=== PATIENT | male | born 1940 | race Caucasian/White ===

== ENCOUNTER 2017-11-29 12:02 | Observation (INO) | payer OTHER, MEDICARE ==
[2017-11-29] VITALS (7 sets, daily range): BP systolic 147–168; BP diastolic 70–94; PULSE 60–62; RESP 16–18; TEMP 97.8–98.8; O2SAT 97–100
--- NOTE | 2017-11-29 12:58 | RADRPT ---
EXAM DATE/TIME: 11/29/2017 12:39 [facility] COMPARISON: No previous studies available for comparison. INDICATIONS : Chest pain with congestion. MEDICAL HISTORY : Hypertension. SURGICAL HISTORY : Pacemaker. Cardiac stents. ENCOUNTER: Initial ACUITY: 3 weeks PAIN SCORE: 3/10 LOCATION: Bilateral chest FINDINGS: Frontal and lateral views of the chest demonstrate a normal-sized cardiac silhouette. The lungs are h yperinflated with prominent retrosternal airspace. Left chest wall cardiac pacing device/AICD is pres ent. No pleural effusion, airspace consolidation, or pneumothorax is visualized. There are degenerati ve changes of the thoracic spine. CONCLUSION: No acute cardiopulmonary abnormality is identified. Hamzah Bermudez MD on November 29, 2017 at 12:56 Board Certified Radiologist. This report was verified electronically.
[2017-11-29 13:01] LABS: AUTOMATED NEUTROPHIL # 4.9 TH/MM3 (1.8-7.7); BASOPHIL # 0.1 TH/MM3 (0-0.2); BASOPHIL % 1.1 % (0.0-2.0); EOSINOPHIL # 0.3 TH/MM3 (0-0.4); EOSINOPHIL % 4.2 % (0.0-4.0); HEMATOCRIT 41.9 % (39.0-51.0); HEMOGLOBIN 14.2 GM/DL (13.0-17.0); LYMPH % 23.7 % (9.0-44.0); LYMPHOCYTE # 1.9 TH/MM3 (1.0-4.8); MEAN CORPUSCULAR HEMOGLOBIN 30.9 PG (27.0-34.0); MEAN CORPUSCULAR HGB CONC 33.9 % (32.0-36.0); MEAN PLATELET VOLUME 7.7 FL (7.0-11.0); MONO % 11.3 % (0.0-8.0); MONOCYTE # 0.9 TH/MM3 (0-0.9); NEUT % 59.7 % (16.0-70.0); PLATELET COUNT 224 TH/MM3 (150-450); RED CELL DISTRIBUTION WIDTH 14.3 % (11.6-17.2); WHITE BLOOD COUNT 8.2 TH/MM3 (4.0-11.0)
[2017-11-29 13:10] LABS: INTERNATIONAL NORMALIZED RATIO 4.9 RATIO; PROTHROMBIN TIME - PATIENT 49.5 SEC (9.8-11.6)
[2017-11-29 13:18] LABS: ALBUMIN 3.8 GM/DL (3.4-5.0); AST (GOT) 23 U/L (15-37); BICARBONATE 26.2 MEQ/L (21.0-32.0); BLOOD UREA NITROGEN 22 MG/DL (7-18); CHLORIDE 105 MEQ/L (98-107); CREATININE 1.26 MG/DL (0.60-1.30); GLOMERULAR FILTRATION RATE 55 ML/MIN (>89); GLUCOSE,RANDOM 97 MG/DL (74-106); SODIUM (NA) 138 MEQ/L (136-145)
[2017-11-29 13:19] LABS: ALT (GPT) 23 U/L (12-78)
[2017-11-29 13:23] LABS: ALKALINE PHOSPHATASE 70 U/L (45-117); TOTAL BILIRUBIN ADULT 0.5 MG/DL (0.2-1.0); TOTAL PROTEIN 7.4 GM/DL (6.4-8.2); TROPONIN I LESS THAN 0.02 NG/ML (0.02-0.05)
--- NOTE | 2017-11-29 13:50 | PD ---
HPI Chief Complaint: Chest Pain Time Seen by Provider: 13:49 Travel History International Travel<30 days: No Contact w/Intl Traveler<30days: No Traveled to known affect area: No History of Present Illness HPI 77-year-old male came to the emergency room with history of chest pain that is on and off for many months but is progressively getting worse and more continuous. It is substernal. Patient had gone to [place] where he had an EGD done as well as a CT scan of his chest. They were all within normal limits. Patient does have history of coronary artery disease and had 2 stents put in 18 months ago. Patient is concerned because the nitro is not working with the pain. No aggravating or relieving factors identified. No radiation of the pain. He is here with his . Vital signs are stable. There was blood work initiated in triage. [facility] Past Medical History Narrative Medical List of his past medical, surgical, social and family history is reviewed from the nursing note Social History Tobacco Use: No Allergies-Medications (Allergen,Severity, Reaction): Coded Allergies: No Known Allergies (Unverified , 11/29/17) Comments No known drug allergies. Reported Meds & Prescriptions Reported Meds & Active Scripts Active Reported Nitroglycerin SL (Nitroglycerin) 0.4 Mg Subl 0.4 Mg SL DIRECTED PRN ONE TABLET UNDER THE TONGUE NEEDED FOR CHEST PAIN, MAY REPEAT EVERY FIVE MINUTES FOR A TOTAL OF 3 DOSES OR CALL 911 IF NO RELIEF Metoprolol Tartrate 50 Mg Tab 50 Mg PO DAILY Warfarin 5 Mg Tab 5 Mg PO DAILY Spironolactone 25 Mg Tab 25 Mg PO DAILY Pantoprazole (Pantoprazole Sodium) 40 Mg Tab 40 Mg PO DAILY Lisinopril 10 Mg Tab 10 Mg PO DAILY Narrative Medication List of his home medications reviewed from the nursing Review of Systems Except as stated in HPI: all other systems reviewed are Neg Cardiovascular: Positive: Chest Pain or Discomfort Physical Exam Narrative GENERAL: Awake, alert, no obvious distress, anxious SKIN: Focused skin assessment warm/dry. HEAD: Atraumatic. Normocephalic. EYES: Pupils equal and round. No scleral icterus. No injection or drainage. ENT: No nasal bleeding or discharge. Mucous membranes pink and moist. NECK: Trachea midline. No JVD. CARDIOVASCULAR: Regular rate and rhythm. No murmur appreciated. RESPIRATORY: No accessory muscle use. Clear to auscultation. Breath sounds equal bilaterally. GASTROINTESTINAL: Abdomen soft, non-tender, nondistended. Hepatic and splenic margins not palpable. MUSCULOSKELETAL: No obvious deformities. No clubbing. No cyanosis. No edema. NEUROLOGICAL: Awake and alert. No obvious cranial nerve deficits. Motor grossly within normal limits. Normal speech. PSYCHIATRIC: Appropriate mood and affect; insight and judgment normal. Data Data Last Documented VS Vital Signs Date Time Temp Pulse Resp B/P (MAP) Pulse Ox O2 Delivery O2 Flow Rate FiO2 11/29/17 13:50 97.8 61 16 164/71 (102) 99 11/29/17 13:50 Room Air Orders Orders Electrocardiogram (11/29/17 12:16) Ckmb (Isoenzyme) Profile (11/29/17 12:16) Complete Blood Count With Diff (11/29/17 12:16) Comprehensive Metabolic Panel (11/29/17 12:16) Magnesium (Mg) (11/29/17 12:16) Prothrombin Time / Inr (Pt) (11/29/17 12:16) Act Partial Throm Time (Ptt) (11/29/17 12:16) Troponin I (11/29/17 12:16) Lipase (11/29/17 12:16) Chest, Pa & Lat (11/29/17 12:16) Admit Order (Ed Use Only) (11/29/17 14:17) Labs Laboratory Tests Test 11/29/17 12:42 White Blood Count 8.2 TH/MM3 Red Blood Count 4.60 MIL/MM3 Hemoglobin 14.2 GM/DL Hematocrit 41.9 % Mean Corpuscular Volume 91.0 FL Mean Corpuscular Hemoglobin 30.9 PG Mean Corpuscular Hemoglobin Concent 33.9 % Red Cell Distribution Width 14.3 % Platelet Count 224 TH/MM3 Mean Platelet Volume 7.7 FL Neutrophils (%) (Auto) 59.7 % Lymphocytes (%) (Auto) 23.7 % Monocytes (%) (Auto) 11.3 % Eosinophils (%) (Auto) 4.2 % Basophils (%) (Auto) 1.1 % Neutrophils # (Auto) 4.9 TH/MM3 Lymphocytes # (Auto) 1.9 TH/MM3 Monocytes # (Auto) 0.9 TH/MM3 Eosinophils # (Auto) 0.3 TH/MM3 Basophils # (Auto) 0.1 TH/MM3 CBC Comment DIFF FINAL Differential Comment Prothrombin Time 49.5 SEC Prothromb Time International Ratio 4.9 RATIO Activated Partial Thromboplast Time 43.4 SEC Blood Urea Nitrogen 22 MG/DL Creatinine 1.26 MG/DL Random Glucose 97 MG/DL Total Protein 7.4 GM/DL Albumin 3.8 GM/DL Calcium Level 9.0 MG/DL Magnesium Level 2.0 MG/DL Alkaline Phosphatase 70 U/L Aspartate Amino Transf (AST/SGOT) 23 U/L Alanine Aminotransferase (ALT/SGPT) 23 U/L Total Bilirubin 0.5 MG/DL Sodium Level 138 MEQ/L Potassium Level 4.4 MEQ/L Chloride Level 105 MEQ/L Carbon Dioxide Level 26.2 MEQ/L Anion Gap 7 MEQ/L Estimat Glomerular Filtration Rate 55 ML/MIN Total Creatine Kinase 92 U/L Troponin I LESS THAN 0.02 NG/ML Lipase 278 U/L MDM Medical Decision Making Medical Screen Exam Complete: Yes Emergency Medical Condition: Yes Medical Record Reviewed: Yes Differential Diagnosis ACS, non-STEMI, nonspecific chest Narrative Course 2:20 PM blood test results are back and within acceptable limit. Patient will be admitted to the chest pain center to be ruled out. Procedures EKG Prior to Arrival: No Diagnosis Primary Impression: Chest pain Qualified Codes: R07.9 - Chest pain, unspecified Admitting Information Admitting Physician Requests: Observation Sterling Landis MD Nov 29, 2017 13:49
[2017-11-29] MEDS ORDERED: EZET1TAB8 PO (13:54)
[2017-11-29] MEDS ORDERED: LISI10TA3 PO (13:57)
[2017-11-29] MEDS ORDERED: PANT40TA3 PO (13:59)
[2017-11-29] MEDS ORDERED: SPIR25TA PO (14:02)
[2017-11-29] MEDS ORDERED: WARF-23 PO (14:03)
[2017-11-29] MEDS ORDERED: METO50TA PO (14:08)
[2017-11-29] MEDS ORDERED: NITR1SUB3 SL (14:10)
[2017-11-29] MEDS ORDERED: NITROGLYCERIN 0.4 MG SL 25 TABS/BTL SL PRN (15:00)
[2017-11-29] MEDS ORDERED: ONDANSETRON HCL 4 MG/2 ML VIAL IV PUSH PRN (15:00)
[2017-11-29] MEDS ORDERED: ACETAMINOPHEN 500 MG CPLT PO PRN (15:00)
[2017-11-29] MEDS ORDERED: SODIUM CHLORIDE 0.9% FLUSH 10 ML FLUSH IV FLUSH PRN (15:00)
--- NOTE | 2017-11-29 15:17 | HHI.HP ---
HPI Primary Care Physician [facility] Chief Complaint Chest pain History of Present Illness 77-year-old male with history of coronary artery disease presents to emergency room for further evaluation chest pain, pointing to the epigastric area. Onset "years" worsening over last couple of months. Endorses endoscopy 2 months ago due to presenting symptoms. Today while filling his bird feeders developed moderate discomfort, rated 5/10, without radiation. Duration minutes. No reciprocating or relieving factors. No associated symptoms of nausea, vomiting , dyspnea, or diaphoresis. Endorses several episodes increasing over last month. No current discomfort. Review of Systems General: No fatigue,weakness, fever, chills, recent illness, or change in appetite. Has been in his general state of health. HEENT: No MAHAN, no vision changes, no nasal congestion or drainage, no dysphasia CV: As stated above. No current chest pain, pressure, palpitations, or dizziness. RESP: No SOB, cough, wheeze, or asthma GI: No nausea, vomiting, bowel changes, diarrhea, constipation, pain, distention , melena, or blood in the stool. : No dysuria, urgency, frequency EXT: No lower leg edema, no paraesthesias MS: No discomfort, injury, or change in ROM NEURO: No change in memory, difficulty with balance, LOC, motor/sensory deficits PSYCH: No anxiety, depression, suicidal ideation SKIN: No rashes, no concerning lesions Past Family Social History Allergies: Coded Allergies: No Known Allergies (Unverified , 11/29/17) Past Medical History CAD, FL, decreased EF, GERD Past Surgical History None Reported Medications Reported Meds & Active Scripts Active Reported Nitroglycerin SL (Nitroglycerin) 0.4 Mg Subl 0.4 Mg SL DIRECTED PRN ONE TABLET UNDER THE TONGUE NEEDED FOR CHEST PAIN, MAY REPEAT EVERY FIVE MINUTES FOR A TOTAL OF 3 DOSES OR CALL 911 IF NO RELIEF Metoprolol Tartrate 50 Mg Tab 50 Mg PO DAILY Warfarin 5 Mg Tab 5 Mg PO DAILY Spironolactone 25 Mg Tab 25 Mg PO DAILY Pantoprazole (Pantoprazole Sodium) 40 Mg Tab 40 Mg PO DAILY Lisinopril 10 Mg Tab 10 Mg PO DAILY Active Ordered Medications Current Medications Medications (Trade) Dose Ordered Sig/Rachid Route Start Time Stop Time Status Last Admin (NS Flush) 2 ml UNSCH PRN IV FLUSH 11/29/17 15:00 (NS Flush) 2 ml BID IV FLUSH 11/29/17 21:00 (Tylenol) 500 mg Q4H PRN PO 11/29/17 15:00 (Zofran Inj) 4 mg Q6H PRN IV PUSH 11/29/17 15:00 (Nitrostat Sl) 0.4 mg Q5M PRN SL 11/29/17 15:00 (Aspirin) 325 mg DAILY PO 11/30/17 09:00 Social History Known CAD and hyperlipidemia. States he is unable to tolerate statin therapy. No known diabetes or hypertension. Quit smoking age 38. Past cardiac testing July 2016 cardiac catheterization-[facility]-reports 3 cardiac stents , stents card reviewed cardiac stents x3 RCA, 1 LAD. Defib/pacer placed during this time. STEMI 2001-[facility] Physical Exam Vital Signs Vital Signs Date Time Temp Pulse Resp B/P (MAP) Pulse Ox O2 Delivery O2 Flow Rate FiO2 11/29/17 15:14 97.8 61 17 168/82 (110) 98 11/29/17 15:13 100 21 11/29/17 13:50 97.8 61 16 164/71 (102) 99 11/29/17 13:50 67 17 100 Room Air 11/29/17 12:13 98.8 62 18 158/94 (115) 99 Physical Exam GENERAL: Alert WN, WD, NAD, pleasant, elderly male HEAD: NC, AT CV: RRR, without murmur, rub, gallop, no JVD, S1-S2 no S3-S4. Chest wall nontender with palpation. RESP: Clear lungs throughout bilateral, no crackles, wheeze, rhonchi, symmetrical chest rise, nonlabored, able to speak in full sentences ABD: Soft, NT, ND, no masses, positive bowel tones EXT: Pulses +2x4, no dependent edema MS: Normal tone x4 extremities, nontender, no obvious deformities, full range of motion NEURO: CN II through CN XII grossly intact, motor strength 5/5 PSYCH: A+O -3, pleasant affect, appropriate speech, mood, insight and judgment SKIN: Normal turgor, normal texture, no lesions, no rashes, brisk cap refill, even hair distribution Laboratory Laboratory Tests Test 11/29/17 12:42 White Blood Count 8.2 Red Blood Count 4.60 Hemoglobin 14.2 Hematocrit 41.9 Mean Corpuscular Volume 91.0 Mean Corpuscular Hemoglobin 30.9 Mean Corpuscular Hemoglobin Concent 33.9 Red Cell Distribution Width 14.3 Platelet Count 224 Mean Platelet Volume 7.7 Neutrophils (%) (Auto) 59.7 Lymphocytes (%) (Auto) 23.7 Monocytes (%) (Auto) 11.3 Eosinophils (%) (Auto) 4.2 Basophils (%) (Auto) 1.1 Neutrophils # (Auto) 4.9 Lymphocytes # (Auto) 1.9 Monocytes # (Auto) 0.9 Eosinophils # (Auto) 0.3 Basophils # (Auto) 0.1 CBC Comment DIFF FINAL Differential Comment Prothrombin Time 49.5 Prothromb Time International Ratio 4.9 Activated Partial Thromboplast Time 43.4 Blood Urea Nitrogen 22 Creatinine 1.26 Random Glucose 97 Total Protein 7.4 Albumin 3.8 Calcium Level 9.0 Magnesium Level 2.0 Alkaline Phosphatase 70 Aspartate Amino Transf (AST/SGOT) 23 Alanine Aminotransferase (ALT/SGPT) 23 Total Bilirubin 0.5 Sodium Level 138 Potassium Level 4.4 Chloride Level 105 Carbon Dioxide Level 26.2 Anion Gap 7 Estimat Glomerular Filtration Rate 55 Total Creatine Kinase 92 Troponin I LESS THAN 0.02 Lipase 278 Result Diagram: 11/29/17 1242 11/29/17 1242 Imaging Last 48 hours Impressions Chest X-Ray 11/29/17 1216 Signed Impressions: Service Date/Time: Wednesday, November 29, 2017 12:39 - CONCLUSION: No acute cardiopulmonary abnormality is identified. Hamzah Bermudez MD Course EKG Atrial paced with PVC, no st changes, U wave anterior/lateral Caprini VTE Risk Assessment Caprini VTE Risk Assessment: Mod/High Risk (score >= 2) Caprini Risk Assessment Model Point Value = 1 Point Value = 2 Point Value = 3 Point Value = 5 Age 41-60 Minor surgery BMI > 25 kg/m2 Swollen legs Varicose veins or History of unexplained or recurrent spontaneous Oral contraceptives or hormone replacement Sepsis (< 1 month) Serious lung disease, including pneumonia (< 1 month) Abnormal pulmonary function Acute myocardial infarction Congestive heart failure (< 1 month) History of inflammatory bowel disease Medical patient at bed rest Age 61-74 Arthroscopic surgery Major open surgery (> 45 min) Laparoscopic surgery (> 45 min) Malignancy Confined to bed (> 72 hours) Immobilizing plaster cast Central venous access Age >= 75 History of VTE Family history of VTE Factor V Leiden Prothrombin [id number] Lupus anticoagulant Anticardiolipin antibodies Elevated serum homocysteine Heparin-induced thrombocytopenia Other congenital or acquired thrombophilia Stroke (< 1 month) Elective arthroplasty Hip, pelvis, or leg fracture Acute spinal cord injury (< 1 month) Prophylaxis Regimen Total Risk Factor Score Risk Level Prophylaxis Regimen 0-1 Low Early ambulation 2 Moderate Order ONE of the following: *Sequential Compression Device (SCD) *Heparin 5000 units SQ BID 3-4 Higher Order ONE of the following medications: *Heparin 5000 units SQ TID *Enoxaparin/Lovenox 40 mg SQ daily (WT < 150 kg, CrCl > 30 mL/min) *Enoxaparin/Lovenox 30 mg SQ daily (WT < 150 kg, CrCl > 10-29 mL/min) *Enoxaparin/Lovenox 30 mg SQ BID (WT < 150 kg, CrCl > 30 mL/min) AND/OR *Sequential Compression Device (SCD) 5 or more Highest Order ONE of the following medications: *Heparin 5000 units SQ TID (Preferred with Epidurals) *Enoxaparin/Lovenox 40 mg SQ daily (WT < 150 kg, CrCl > 30 mL/min) *Enoxaparin/Lovenox 30 mg SQ daily (WT < 150 kg, CrCl > 10-29 mL/min) *Enoxaparin/Lovenox 30 mg SQ BID (WT < 150 kg, CrCl > 30 mL/min) AND *Sequential Compression Device (SCD) Assessment and Plan Assessment and Plan #1 Chest pain-admitted to chest pain center. Rule out with 3 sets of EKGs, cardiac enzymes, and monitor overnight. Seen and evaluated by Dr. Rashaad Rivers. Proceed with Lexiscan in morning, if ACS ruled out. If unremarkable, plans to discharge home with follow up with PCP and his patrol community service officer. Patient agreeable to plan of care and verbalizes understanding. #2 History of CAD-continue metoprolol, spironolactone, and lisinopril. #3 History of atrial fibrillation-hold warfarin, INR 4.9, repeat in a.m. Jesusita Francisco Nov 29, 2017 15:17
[2017-11-29 16:31] LABS: TROPONIN I LESS THAN 0.02 NG/ML (0.02-0.05)
[2017-11-29] MEDS ORDERED: ALUMINUM/MAGNESIUM/SIMETH 30 ML CUP PO ONE ×2 (18:15→23:45)
[2017-11-29] MEDS ORDERED: LIDOCAINE VISCOUS 2% SOLN 15 ML UDC SWISH-SWAL ONE (18:15)
[2017-11-29 19:43] LABS: TROPONIN I LESS THAN 0.02 NG/ML (0.02-0.05)
[2017-11-29] MEDS: SODIUM CHLORIDE 0.9% FLUSH 10 ML FLUSH IV FLUSH SCH (19:43)
[2017-11-29] MEDS ORDERED: TEMAZEPAM 15 MG CAP PO PRN (23:45)
[2017-11-29] MEDS ORDERED: ATROPINE/SCOPOLAM/HYOSCYAM/PB ELIXIR 10 ML CUP PO ONE (23:45)
[2017-11-29] MEDS ORDERED: LIDOCAINE VISCOUS 2% SOLN 15 ML UDC PO ONE (23:45)
[2017-11-30] VITALS (8 sets, daily range): BP systolic 118–150; BP diastolic 69–84; PULSE 59–62; RESP 16–18; TEMP 97.9–98.9; O2SAT 97–99
[2017-11-30 07:11] LABS: INTERNATIONAL NORMALIZED RATIO 3.8 RATIO
[2017-11-30] MEDS: SODIUM CHLORIDE 0.9% FLUSH 10 ML FLUSH IV FLUSH SCH (08:20)
[2017-11-30] MEDS ORDERED: SPIRONOLACTONE 25 MG TAB PO SCH (09:00)
[2017-11-30] MEDS ORDERED: PANTOPRAZOLE SOD 40 MG DELAYED RELEASE TAB PO SCH (09:00)
[2017-11-30] MEDS ORDERED: METOPROLOL TARTRATE 50 MG TAB PO SCH (09:00)
[2017-11-30] MEDS ORDERED: LISINOPRIL 10 MG TAB PO SCH (09:00)
[2017-11-30] MEDS ORDERED: ASPIRIN 325 MG TAB PO SCH (09:00)
[2017-11-30] MEDS ORDERED: REGADENOSON INJ 0.4 MG/5 ML SYR ONE (10:11)
[2017-11-30] MEDS ORDERED: AMINOPHYLLINE INJ 500 MG/20 ML VIAL ONE (11:12)
--- NOTE | 2017-11-30 13:34 | RADRPT ---
EXAM DATE/TIME: 11/30/2017 10:25 [facility] COMPARISON: No previous studies available for comparison. INDICATIONS : Chest pain. Angina. DOSE: 27 mCi Tc99m Myoview at stress. 8.2 mCi Tc99m Myoview at rest. 0.4 mg Lexiscan STRESS SYMPTOMS: None noted. MEDICATIONS: 1.) 100 mg Aminophylline IV EJECTION FRACTION: 20% MEDICAL HISTORY : Angina. SURGICAL HISTORY : None. ENCOUNTER: Initial ACUITY: 2 months PAIN SCALE: 5/10 LOCATION: Bilateral chest TECHNIQUE: The patient underwent pharmacologic stress with infusion of prescribed dose. Continuous ECG tracing was monitored during stress. Gated SPECT imaging was performed after stress and conventional SPECT i maging was performed at rest. The examination was performed on a SPECT/CT scanner, both attenuation and non-corrected datasets were reviewed. FINDINGS: DISTRIBUTION: The maximum perfused segment at stress is in the inferior wall. PERFUSION STUDY: Large fixed defect in the apical anterior and septal tuttle. The pattern of perfusion at stress is wit hin normal limits. GATED STUDY: There is global hypokinesia asymmetrically prominent in the apex and septal tuttle with EF of 20%. CONCLUSION: 1. Large apical anteroseptal wall infarct. 2. No definite stress-induced ischemia. 3. Global hypokinesia, more pronounced in the apex anteroseptal tuttle, with reduced EF of 20%. RISK CATEGORY: High (>3% Annual Mortality Rate) Geoff Mathews MD on November 30, 2017 at 13:28 Board Certified Radiologist. This report was verified electronically.
--- NOTE | 2017-11-30 14:20 | HHI.DCPOC ---
Discharge Care Plan Diagnosis: (1) Chest pain (2) CAD (coronary artery disease) (3) Hypertension (4) Paroxysmal A-fib (5) H/O heart artery stent Goals to Promote Your Health HOLD COUMADIN TODAY AND HAVE INR RECHECKED AT THE [place] TOMORROW FOR FURTHER INSTRUCTIONS. * To prevent worsening of your condition and complications * To maintain your health at the optimal level Directions to Meet Your Goals Take your medications as prescribed Follow your dietary instruction Follow activity as directed Keep your appointments as scheduled Take your immunizations and boosters as scheduled If your symptoms worsen call your PCP, if no PCP go to Urgent Care Center or Emergency Room Smoking is Dangerous to Your Health. Avoid second hand smoke Call the 24-hour hour crisis hotline for domestic abuse at [place] Estrada Nov 30, 2017 14:20
--- NOTE | 2017-11-30 17:37 | TR ---
Date Performed: 11/30/2017 Time Performed: 10:56:11 DOCTOR: Jacqueline Marshall DRUG LIST: CLINICAL HISTORY: REASON FOR TEST: CHEST PAIN REASON FOR ENDING: OBSERVATION: CONCLUSION: COMMENTS: Lexiscan stress test was performed under standard four minute protocol. Radionuclide was injected one minute prior to ending the test. No electrocardiographic abormalities were present t o suggest ischemia. Nuclear imaging and interpretation are pending.
--- NOTE | 2017-11-30 17:43 | EKG ---
Date Performed: 11/29/2017 Time Performed: 16:13:59 PTAGE: 77 years EKG: ELECTRONIC ATRIAL PACEMAKER Since PREVIOUS TRACING , no significant change noted PREVIOUS TRACIN11/29/2017 12.46 DOCTOR: Jacqueline Marshall Interpretating Date/Time 11/30/2017 17:42:07
--- NOTE | 2017-11-30 17:44 | EKG ---
Date Performed: 11/29/2017 Time Performed: 18:44:31 PTAGE: 77 years EKG: ELECTRONIC ATRIAL PACEMAKER Since PREVIOUS TRACING , no significant change noted PREVIOUS TRACIN11/29/2017 16.13 DOCTOR: Jacqueline Marshall Interpretating Date/Time 11/30/2017 17:43:12
--- NOTE | 2017-11-30 17:51 | EKG ---
Date Performed: 11/29/2017 Time Performed: 12:46:19 PTAGE: 77 years EKG: ELECTRONIC ATRIAL PACEMAKER MARKED LEFT AXIS DEVIATION ANTEROSEPTAL MYOCARDIAL INFARCTION A BNORMAL ECG NO PREVIOUS TRACING DOCTOR: Jacqueline Marshall Interpretating Date/Time 11/30/2017 17:49:11
== END 2017-11-30 16:19 | disposition home or self-care (01) ==
LOC: NEPE 12:02 → NEDA 14:19 → NEPFCDU 15:31
PROVIDERS: ADMIT Internal Medicine Cardiovascular Disease; ATTEND Internal Medicine Cardiovascular Disease
DX: R07.89 Other chest pain (principal); I48.0 Paroxysmal atrial fibrillation; I10 Essential (primary) hypertension; I25.10 Atherosclerotic heart disease of native coronary artery without angina pectoris; E78.5 Hyperlipidemia, unspecified; R94.31 Abnormal electrocardiogram [ECG] [EKG]; I25.2 Old myocardial infarction; K21.9 Gastro-esophageal reflux disease without esophagitis; Z79.899 Other long term (current) drug therapy; Z79.01 Long term (current) use of anticoagulants; Z95.0 Presence of cardiac pacemaker
CPT/HCPCS: 71046; 78452; 80053; 82550; 83690; 83735; 84484; 85025; 85610; 85730; 93005; 93017; 99285; A9502; G0378; J0280; J2785